=== PATIENT | female | born 1950 ===

== ENCOUNTER 2024-12-07 11:45 | Inpatient (IN) | payer OTHER ==
[~2024-12-07] VITALS: Ht 157.5 cm; Wt 69.4 kg
[2024-12-07] MEDS ORDERED: METFORMIN HCL500 M3 (14:01)
[2024-12-07] MEDS ORDERED: GLIMEPIRIDE2 MG (14:02)
[2024-12-07] MEDS ORDERED: LIPITOR 10MG (14:02)
[2024-12-07] MEDS ORDERED: NEURONTIN300 MG (14:02)
[2024-12-07] MEDS ORDERED: CLONAZEPAM2 MG (14:03)
[2024-12-07] MEDS ORDERED: SULINDAC200 MG (14:03)
[2024-12-07] MEDS ORDERED: ADULT LOW DOSE81 M1 (14:03)
[2024-12-07] MEDS ORDERED: TENORMIN25 MG (14:03)
[2024-12-07] MEDS ORDERED: ALTACE2.5 MG (14:04)
[2024-12-07] MEDS ORDERED: CENTRUM (14:04)
[2024-12-07] MEDS ORDERED: PROTONIX40 MG (14:04)
[2024-12-12] MEDS ORDERED: METRONIDAZOLE/SODIUM CHLORIDE 500 MG/100 ML PIGGYBACK IV ONE ×2 (10:12→16:45)
[2024-12-12] MEDS ORDERED: CEFTRIAXONE SODIUM 2,000 MG VIAL ONE (10:12)
[2024-12-12] MEDS ORDERED: BUPIVACAINE HCL 30 ML VIAL IJ ONE (16:45)
[2024-12-12] MEDS ORDERED: LIDOCAINE HCL 1%/EPINEPHRINE 20ML VIAL IJ ONE (16:45)
[2024-12-12] MEDS ORDERED: SUGAMMADEX SODIUM 200 MG/2 ML VIAL IV ONE (18:22)
[2024-12-12] MEDS ORDERED: RINGERS SOLUTION,LACTATED 1,000 ML IV SCH (18:30)
[2024-12-12] MEDS ORDERED: OxyCODONE HCL 5 MG TABLET (ROXICODONE) PO PRN (18:30)
[2024-12-12] MEDS ORDERED: ONDANSETRON HCL 2 MG/ML VIAL IV PRN (18:30)
[2024-12-12] MEDS ORDERED: MORPHINE SULFATE 4 MG/ML CARTRIDGE IV PRN (18:30)
[2024-12-12] MEDS ORDERED: ACETAMINOPHEN 500 MG GEL..CAP PO SCH (20:00)
[2024-12-12] MEDS ORDERED: MORPHINE SULFATE 2 MG/ML CARTRIDGE IV ONE (20:50)
[2024-12-12] MEDS ORDERED: FAMOTIDINE/PF 20 MG/2 ML VIAL IV PUSH SCH (21:00)
[2024-12-12] MEDS ORDERED: SIMETHICONE 125 MG CAPSULE PO SCH (21:00)
[2024-12-12] MEDS ORDERED: FAMOTIDINE/PF 20 MG/2 ML VIAL ONE (21:28)
[2024-12-12 21:49] LABS: HEMATOCRIT 40.4 % (36.0-45.00); HEMOGLOBIN 13.6 g/dL (12.0-15.00); MEAN CELL VOLUME 84.3 fL (80.00-100.00); MEAN CORPUSCULAR HEMOGLOBIN 28.5 pg (27.00-32.0); MEAN CORPUSCULAR HGB CONC 33.8 g/dl (32.0-36.0); PLATELET COUNT 155 K/uL (150-450); RED BLOOD COUNT 4.79 M/uL (4.00-6.00); RED CELL DISTRIBUTION WIDTH 15.3 % (11.5-14.5)
[2024-12-12 23:51] VITALS: BP 119/77; O2SAT 99
[2024-12-13] MEDS ORDERED: METOCLOPRAMIDE HCL 5 MG/ML VIAL IV SCH (01:00)
[2024-12-13] MEDS ORDERED: GABAPENTIN 300 MG CAPSULE PO SCH (01:00)
[2024-12-13] MEDS ORDERED: INSULIN LISPRO 1,000 UNIT/10 ML UNITS SUBCUTANEO PRN (05:00)
[2024-12-13] MEDS ORDERED: ENALAPRILAT DIHYDRATE 1.25 MG/ML VIAL IV PRN (05:00)
[2024-12-13] MEDS ORDERED: CELECOXIB 200 MG CAPSULE PO SCH (05:00)
[2024-12-13] MEDS ORDERED: DEXTROSE 50 % IN WATER 0.5 G/ML DISP.SYRIN IV PRN (05:00)
[2024-12-13 06:59] LABS: HEMATOCRIT 40.6 % (36.0-45.00); HEMOGLOBIN 13.8 g/dL (12.0-15.00); MEAN CELL VOLUME 83.2 fL (80.00-100.00); MEAN CORPUSCULAR HEMOGLOBIN 28.4 pg (27.00-32.0); MEAN CORPUSCULAR HGB CONC 34.1 g/dl (32.0-36.0); PLATELET COUNT 174 K/uL (150-450); RED BLOOD COUNT 4.88 M/uL (4.00-6.00); RED CELL DISTRIBUTION WIDTH 15.2 % (11.5-14.5)
[2024-12-13 07:07] LABS: ALBUMIN 3.3 gm/dL (3.4-5.0); CALCIUM 9.2 mg/dL (8.5-10.1); CREATININE SERUM 0.8 mg/dL (0.55-1.02); GFR 70.31; MAGNESIUM 1.8 mg/dL (1.8-2.4); PHOSPHOROUS 3.6 mg/dL (2.5-4.9); POTASSIUM 4.4 mEq/L (3.5-5.1)
[2024-12-13 08:00] VITALS: BP 105/65; O2SAT 95
[2024-12-13] MEDS ORDERED: LACTOBACILLUS ACIDOPHILUS 1 CAP CAP PO SCH (09:00)
[2024-12-13] MEDS ORDERED: RAMIPRIL 2.5 MG CAPSULE PO SCH (09:00)
[2024-12-13] MEDS ORDERED: ATENOLOL 25 MG TABLET PO SCH (09:00)
[2024-12-13] MEDS ORDERED: HYOSCYAMINE SULFATE 0.125 MG TAB.SUBL SL SCH (09:00)
[2024-12-13] MEDS ORDERED: LACTULOSE 20 G/30 ML BLIST.PACK PO SCH (09:00)
[2024-12-13] MEDS ORDERED: ATORVASTATIN CA10 MG (13:28)
[2024-12-13] MEDS ORDERED: CENTRUM ADULTS1 EACH (13:29)
[2024-12-13 16:00] VITALS: BP 104/65; O2SAT 93
[2024-12-13] MEDS ORDERED: POLYETHYLENE GLYCOL 3350 17 GM BLIST.PACK PO SCH (17:00)
[2024-12-13] MEDS ORDERED: ATORVASTATIN CALCIUM 10 MG TABLET PO SCH (17:00)
[2024-12-13] MEDS ORDERED: ENOXAPARIN SODIUM 40 MG/0.4 ML SYRINGE SUBCUTANEO SCH (17:00)
[2024-12-14 00:34] VITALS: BP 105/63; O2SAT 98
[2024-12-14 07:55] LABS: HEMATOCRIT 35.2 % (36.0-45.00); HEMOGLOBIN 11.9 g/dL (12.0-15.00); MEAN CELL VOLUME 84.1 fL (80.00-100.00); MEAN CORPUSCULAR HEMOGLOBIN 28.5 pg (27.00-32.0); MEAN CORPUSCULAR HGB CONC 33.8 g/dl (32.0-36.0); PLATELET COUNT 182 K/uL (150-450); RED BLOOD COUNT 4.19 M/uL (4.00-6.00); RED CELL DISTRIBUTION WIDTH 15.7 % (11.5-14.5)
[2024-12-14 08:25] LABS: CALCIUM 8.8 mg/dL (8.5-10.1); CREATININE SERUM 1.05 mg/dL (0.55-1.02); GFR 51.37; PHOSPHOROUS 2.6 mg/dL (2.5-4.9); POTASSIUM 4.53 mEq/L (3.5-5.1)
[2024-12-14 08:26] VITALS: BP 99/64; O2SAT 96
[2024-12-14] MEDS ORDERED: ENOXAPARIN SODIUM 40 MG/0.4 ML SYRINGE SUBCUTANEO SCH (09:00)
[2024-12-14] MEDS ORDERED: SUGAMMADEX SODIUM 200 MG/2 ML VIAL IV ONE (14:00)
[2024-12-14 16:00] VITALS: BP 113/72; O2SAT 98
[2024-12-15 00:28] VITALS: BP 108/67; O2SAT 96
[2024-12-15 08:32] VITALS: BP 121/71; O2SAT 97
[2024-12-15 16:00] VITALS: BP 135/73
[2024-12-16 01:02] VITALS: BP 123/67; O2SAT 98
[2024-12-16 08:00] VITALS: BP 129/72; O2SAT 96
[2024-12-16] MEDS ORDERED: TAMSULOSIN HCL 0.4 MG CAP PO ONE (11:30)
== END 2024-12-16 15:36 | disposition home or self-care (01) | DRG 330 ==
LOC: O/R 12-12 04:30 → SURH 12-12 04:30
PROVIDERS: Internal Medicine Geriatric Medicine; ADMIT Colon & Rectal Surgery; ATTEND Colon & Rectal Surgery
PROC: 0DBP4ZZ Excision of Rectum, Percutaneous Endoscopic Approach (ICD-10-PCS; 2024-12-12)
PROC: 0USG4ZZ Reposition Vagina, Percutaneous Endoscopic Approach (ICD-10-PCS; 2024-12-12)
PROC: 0TQB4ZZ Repair Bladder, Percutaneous Endoscopic Approach (ICD-10-PCS; 2024-12-12)
PROC: 0DX Gastrointestinal System, Transfer (ICD-10-PCS; 2024-12-12)
PROC: 8E0W4CZ Robotic Assisted Procedure of Trunk Region, Percutaneous Endoscopic Approach (ICD-10-PCS; 2024-12-12)
PROC: 0DTN4ZZ Resection of Sigmoid Colon, Percutaneous Endoscopic Approach (ICD-10-PCS; principal; 2024-12-12 14:00)
PROC: BW21YZZ Computerized Tomography (CT Scan) of Abdomen and Pelvis using Other Contrast (ICD-10-PCS; 2024-12-15)
DX: K57.20 Diverticulitis of large intestine with perforation and abscess without bleeding (principal); N32.1 Vesicointestinal fistula; N99.72 Accidental puncture and laceration of a genitourinary system organ or structure during other procedure; K66.0 Peritoneal adhesions (postprocedural) (postinfection)
CPT/HCPCS: 44207; 44213; 57200; 51865; 49905; 74177; S2900